=== PATIENT | female | born 1950 | race Caucasian/White ===

== ENCOUNTER 2020-11-08 13:15 | Outpatient (CLI) | payer MEDICARE ==
--- NOTE | 2020-11-08 14:01 | ULT ---
Renal sonogram HISTORY: Chronic renal insufficiency. FINDINGS: Right kidney is 11.1 cm length and left is 10.8 cm. Mild diffuse cortical thinning of each kidney. No hydronephrosis or mass. Urinary bladder has a normal appearance. IMPRESSION : Mild diffuse cortical thinning. No evidence of obstruction.
== END 2020-11-08 13:16 | disposition home or self-care (01) ==
LOC: BICULT 13:15
PROVIDERS: ATTEND Internal Medicine Nephrology
DX: N18.4 Chronic kidney disease, stage 4 (severe) (principal); N28.89 Other specified disorders of kidney and ureter
CPT/HCPCS: 76770